=== PATIENT | female | born 2000 | race Caucasian/White ===

== ENCOUNTER 2020-09-30 22:52 | Emergency (ER) | payer OTHER ==
--- NOTE | 2020-09-30 23:12 | ER Document Report ---
ED Medical Screen (RME) - General Chief Complaint: Foreign Body in Vagina Stated Complaint: FOREIGN OBJECT IN BODY Time Seen by Provider: 09/30/20 23:08 - HPI Notes: Patient is a 20-year-old female who presents with a retained tampon in her vagina. Patient states she put the tampon in last night and this morning when she awoke to take it out she could not find the strings. She states she tried to find it but was unsuccessful. Patient states she can with results that she did not place a tampon the night before. She placed a new tampon without difficulty but when she removed it later on it did not appear right. Patient states her mother who is a nurse attempted to fish it out using forceps but was also unsuccessful. Patient now reports increased vaginal bleeding and vaginal swelling. She denies any other symptoms including abdominal pain, fever, and abnormal vaginal discharge. Physical Exam - Abdominal Distension: No distension Bowel sounds: Normal Tenderness: Nontender Course - Re-evaluation Re-evalutation: I have greeted and performed a rapid initial assessment of this patient. A comprehensive ED assessment and evaluation of the patient, analysis of test results and completion of medical decision making process will be conducted by an additional ED providers.
--- NOTE | 2020-10-01 00:36 | ER Document Report ---
ED GI/ - General Chief Complaint: Foreign Body in Vagina Stated Complaint: FOREIGN OBJECT IN BODY Time Seen by Provider: 09/30/20 23:08 Primary Care Provider: SALINAS WHYTE FNP [Primary Care Provider] - Follow up as needed Mode of Arrival: Ambulatory Information source: Patient Notes: 20-year-old female presents to the emergency room for concerns of a tampon stuck in her vagina. Patient states she has been on her menstrual cycle for the past 2 days states she put a tampon in around 1 AM in the morning did not get up to use the bathroom until around 11 AM and states she was unable to find the tampon. She states she put another tampon in and when she took that one out several hours later noticed there was minimal bleeding on the tampon. Patient states her mom is a nurse and looked in the vagina and states that she could see the tampon attempted to retrieve it with forceps at home without success. Denies any fevers. Denies any vaginal discharge. TRAVEL OUTSIDE OF THE [place] IN LAST 30 DAYS: No Past Medical History - General Information source: Patient Last Menstrual Period: current - Social History Smoking Status: Never Smoker Frequency of alcohol use: None Drug Abuse: None Family History: Reviewed & Not Pertinent Review of Systems - Review of Systems Constitutional: No symptoms reported EENT: No symptoms reported Cardiovascular: No symptoms reported Respiratory: No symptoms reported Gastrointestinal: No symptoms reported Genitourinary: No symptoms reported Female Genitourinary: Other - Foreign body in vagina Musculoskeletal: No symptoms reported Skin: No symptoms reported Neurological/Psychological: No symptoms reported -: Yes All other systems reviewed and negative Physical Exam - Vital signs Vitals: Temp Pulse Resp BP Pulse Ox 98.9 F 89 20 121/62 100 10/01/20 00:00 10/01/20 00:00 10/01/20 00:00 10/01/20 00:00 10/01/20 00:00 - General General appearance: Appears well, Alert - HEENT Head: Normocephalic, Atraumatic Eyes: Normal Pupils: PERRL - Respiratory Respiratory status: No respiratory distress Chest status: Nontender Breath sounds: Normal Chest palpation: Normal - Cardiovascular Rhythm: Regular Heart sounds: Normal auscultation Murmur: No - Abdominal Inspection: Normal Distension: No distension Bowel sounds: Normal Tenderness: Nontender Organomegaly: No organomegaly - Genitourinary External exam: Normal Speculum exam: Cervix closed, Other - Tampon inside her vagina Vaginal bleeding: Mild Bimanuel exam: Normal - Back Back: Normal, Nontender. No: CVA tenderness - Neurological Neuro grossly intact: Yes Cognition: Normal Orientation: AAOx4 Bastian Coma Scale Eye Opening: Spontaneous Bastian Coma Scale Verbal: Oriented Bastian Coma Scale Motor: Obeys Commands David Coma Scale Total: 15 Speech: Normal Motor strength normal: LUE, RUE, LLE, RLE Sensory: Normal - Skin Skin Temperature: Warm Skin Moisture: Dry Skin Color: Normal Course - Re-evaluation Re-evalutation: 10/01/20 00:57 Able to remove retained tampon with ring tip forceps. KEVIN Wagner chaperoned. Patient tolerated well. Cervix was closed. No discharge noted. Patient was counseled to follow-up with her primary care physician as needed. Patient was given strict return to the emergency room guidelines. Return for any new or worsening symptoms. All questions were answered. Patient verbalized understanding and agrees with plan of care. 10/01/20 03:48 - Vital Signs Vital signs: Temp Pulse Resp BP Pulse Ox 98.4 F 89 20 130/87 H 100 10/01/20 01:05 10/01/20 01:05 10/01/20 01:05 10/01/20 01:05 10/01/20 01:05 - Laboratory Results Critical Laboratory Results Reviewed: No Critical Results - Radiology Results Critical Radiology Results Reviewed: No Critical Results Procedures - Pelvic Exam Pelvic exam Time completed: 00:57 Foreign body removed: Yes - Tampon removed with ring Forceps without difficulty Witnessed by: Kristy PCT Discharge - Discharge Clinical Impression: Foreign body in vagina Qualifiers: Encounter type: initial encounter Qualified Code(s): T19.2XXA - Foreign body in vulva and vagina, initial encounter Condition: Stable Disposition: HOME, SELF-CARE Instructions: Foreign Body ([facility]) Additional Instructions: Follow-up with primary care physician as needed. Return to emergency room for any new or worsening symptoms. Referrals: SALINAS WHYTE FNP [Primary Care Provider] - Follow up as needed
[2020-10-01 01:13] VITALS: BP 130/87
== END 2020-10-01 01:06 | disposition home or self-care (01) ==
LOC: ER 22:52
DX: T19.2XXA Foreign body in vulva and vagina, initial encounter (principal); X58.XXXA Exposure to other specified factors, initial encounter
CPT/HCPCS: 99284

== ENCOUNTER → 2020-10-16 | Outpatient (CLI) | payer OTHER ==
[~2020-10-16] MED LIST: COVID-19 VACCINE (PFIZER)/PF 30 MCG/0.3 ML VIAL IM ONE; EPINEPHRINE INJ/PF 1 MG/1 ML AMPULE IM PRN
== END ==
LOC: EMPHEALTH 17:11
PROVIDERS: ATTEND Internal Medicine
DX: Z23 Encounter for immunization (principal)
CPT/HCPCS: 91300